=== PATIENT | female | born 1965 | race African-American/Black ===

== ENCOUNTER 2019-11-10 07:52 | Emergency (ER) | payer OTHER ==
[~2019-11-10] VITALS: Ht 162.6 cm; Wt 106.6 kg
[2019-11-10 07:56] VITALS: BP 156/96
--- NOTE | 2019-11-10 08:05 | NUR ---
C/O L EAR PAIN 10/10 ACCOMPANIED BY A PRODUCTIVE COUGH X1 WEEK. HAS COTTON BALL IN THE EAR NOW--STATES NO DRAINAGE BUT FEELS LIKE THERE IS FLUID DEEP IN THE EAR. PT DENIES LOSS OF HEARING TO THAT EAR. DENIES FEVER/N/V. STATES OTHER COLD SYMPTOMS--RHINORRHEA AND NASAL CONGESTION. HAS MANY SICK CONTACTS AT WORK--WORKS WITH [employer] CHILDR[employer]. HX: ASTHMA RX: ALBUTEROL
--- NOTE | 2019-11-10 08:08 | NUR ---
DR MISTRY EVALUATING PT AT BEDSIDE
--- NOTE | 2019-11-10 08:18 | NUR ---
Patient discharged with v/s stable. Written and verbal after care instructions given and explained. Patient alert, oriented and verbalized understanding of instructions. Ambulatory with steady gait. All questions addressed prior to discharge. ID band removed. Patient advised to follow up with PMD. Rx of PREDNISONE, CORTISPORIN OTIC, MOTRIN given. Patient educated on indication of medication including possible reaction and side effects. Opportunity to ask questions provided and answered.
[2019-11-10 08:19] VITALS: BP 156/96
== END 2019-11-10 08:18 | disposition home or self-care (01) ==
LOC: MED 07:52
DX: H60.92 Unspecified otitis externa, left ear (principal); J45.909 Unspecified asthma, uncomplicated; Z98.890 Other specified postprocedural states
CPT/HCPCS: 99283